=== PATIENT | female | born 1980 | race African-American/Black ===

== ENCOUNTER 2018-05-17 20:14 | Emergency (ER) | payer MEDICAID ==
[~2018-05-17] VITALS: Ht 157.5 cm; Wt 83.9 kg
[~2018-05-17 20:14] MED LIST: ALBUTEROL2.5 MG/3 M INH; BACITRACIN15 GM TOPIC; BACLOFEN10 MG ORAL; BACTRIM DS TAB1 EAC1 ORAL; CYCLOBENZAPRINE10 MG ORAL; DICLEGIS DR 101 EACH PO; IBUPROFEN600 M1 PO; IBUPROFEN600 MG ORAL; IBUPROFEN600 MG PO; KEFLEX500 MG ORAL; NKM; NORCO 5-325 TA1 EACH ORAL; PEPCID20 MG ORAL; PREDNISONE20 M1 PO; PREDNISONE20 MG ORAL; TRAMADOL HCL50 MG ORAL; VALIUM5 MG ORAL; VALIUM5 MG PO; VICODIN 5-5001 EACH PO; ZITHROMAX250 MG ORAL; ZOFRAN8 MG ORAL
[2018-05-17] MEDS ORDERED: Ketorolac 30mg Inj IM ONE (20:30)
--- NOTE | 2018-05-17 20:36 | Emergency Room Report ---
History of Present Illness General Chief Complaint: Lower Extremity Injury Source: Patient Present Illness HPI Patient is a 37-year-old female who presented after increased right ankle pain. Patient reports having a fall last night. Patient reports increased pain with ambulation. She reports having increased pain to the the lateral and posterior aspect of her foot worsening ambulation. Reports having sharp pain. She had taken ibuprofen without much improvement. Patient denied prior ankle injuries. She stated she was walking downstairs at the time. She denies loss of consciousness. She denies any neck or back pain. She reports having some chronic cough from smoking. Allergies: Coded Allergies: No Known Allergies (Verified Allergy, Unknown, 07/26/09) Patient History Past Medical History: see triage record Now: No Reviewed Nursing Documentation: PMH: Agreed; PSxH: Agreed Nursing Documentation-PMH Past Medical History: No History, Except For Hx Cardiac Problems: No - gallbladder removed / /ovarian cyst removal Hx Asthma: Yes Review of Systems All Other Systems: negative except mentioned in HPI Physical Exam Vital Signs Date Time Temp Pulse Resp B/P (MAP) Pulse Ox O2 Delivery O2 Flow Rate FiO2 05/17/18 20:24 98.9 95 19 116/70 95 Room Air 99.0 General Appearance: well appearing, no apparent distress, alert, GCS 15 Head: normocephalic, atraumatic ENT: hearing grossly normal, normal voice Neck: full range of motion, supple Respiratory: no respiratory distress, speaking full sentences, wheezing Cardiovascular #1: normal peripheral pulses, regular rate, rhythm, edema Musculoskeletal: normal inspection, no calf tenderness Neurologic: normal inspection, alert, oriented x3, responsive, 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 Differential diagnosis included was not limited to vascular insufficiency, fracture, osteomyelitis, sprain, deep venous thrombosis. X-ray imaging of the foot and ankle was obtained. Patient was given IM Toradol for pain. The x-ray of the foot read by radiology showed no evidence of acute fracture or malalignment. X-ray of the right ankle showed no evidence of fracture. The patient is advised to keep her foot elevated and to ice the area. The patient is advised to follow up with primary care doctor in for recheck if not improved. Patient is advised to return if any worsening condition or if any changes in status that are concerning. This report is dictated with [employer] steam generating powerplant mechanic software which may occasionally lead to discrepancies related to use of this software. Last Vital Signs Date Time Temp Pulse Resp B/P (MAP) Pulse Ox O2 Delivery O2 Flow Rate FiO2 05/17/18 20:24 98.9 95 19 116/70 95 Room Air 99.0 Status: improved Disposition: HOME, SELF-CARE Condition: Stable Scripts Ibuprofen* (MOTRIN*) 600 Mg Tablet 600 MG ORAL Q8H PRN for For Pain, #30 TAB 0 Refills Prov: Jose Tinsley MD 05/17/18 Jose Tinsley MD May 17, 2018 20:36
[2018-05-17] MEDS ORDERED: IBUPROFEN600 MG ORAL (21:25)
[2018-05-17 21:39] VITALS: BP 116/70
--- NOTE | 2018-05-18 11:59 | Diagnostic Imaging Report ---
Indication: Pain Technique: 3 views of the right ankle Comparison: none Findings: There is soft tissue swelling over the lateral malleolus. No acute fractures. No dislocations. The joint spaces are preserved Impression: Evidence of lateral soft tissue injury. No acute bony trauma This agrees with the preliminary interpretation provided overnight by [facility].
--- NOTE | 2018-05-18 12:01 | Diagnostic Imaging Report ---
Indication: Foot pain Technique: 3 views right foot Comparison: none Findings: No acute fractures. No dislocations. The joint spaces are preserved. Impression: Negative This agrees with the preliminary interpretation provided overnight by [facility].
== END 2018-05-17 21:39 | disposition home or self-care (01) ==
LOC: EMR 20:47
DX: S93.401A Sprain of unspecified ligament of right ankle, initial encounter (principal); W19.XXXA Unspecified fall, initial encounter; Y92.9 Unspecified place or not applicable; J45.909 Unspecified asthma, uncomplicated
CPT/HCPCS: 73610; 73630; 96372; 99283; J1885